=== PATIENT | male | born 1960 | race Caucasian/White ===

== ENCOUNTER 2016-11-30 15:18 | Emergency (ER) | payer BC ==
[2016-11-30] MEDS ORDERED: Sodium Chloride 0.9% 10 ML Syringe FLUSH PRN ×2 (16:04→17:01)
[2016-11-30] MEDS ORDERED: Ondansetron 4 MG/2 ML SDV IVPUSH ONE (16:04)
[2016-11-30] MEDS ORDERED: Ketorolac 30 MG/ML SDV IVPUSH ONE (16:04)
--- NOTE | 2016-11-30 16:06 | EDM.PDOC ---
ED HPI GENERAL MEDICAL PROBLEM - General Chief Complaint: Back Pain or Injury Stated Complaint: Back pain Time Seen by Provider: 11/30/16 15:50 Source of Information: Reports: Patient, RN notes reviewed History Limitations: Reports: No limitations - History of Present Illness INITIAL COMMENTS - FREE TEXT/NARRATIVE: 56 year old male presents to the ED with chief complaint of 1 week history of low back pain. The patient reportedly tripped in his yard last week and also did some heavy lifting that same day. He's had persistent low back pain since that time. He says he is unable to bend over due to the pain. The pain does not radiate down his legs. The pain radiates around his left side and into his left groin and testicle. He denies loss of bowel or bladder function. The groin pain is worsen when sitting at 90 degrees. He took excedrin yesterday with minimal relief. He also saw a massage therapist with little improvement. He has a history of an left inguinal hernia which was repaired. He also has a history of kidney stones but says this does not feel like a kidney stone. He has a long history of difficulty starting stream and dribbling of urine. He's been told he has an enlarged prostate. No history of prostate cancer. He also has a history of diverticulosis. He had a small loose BM this morning. No blood. No nausea or vomiting. [ End ] Left Lower Back Pain Score (Numeric/FACES): 8 - Related Data Allergies Allergy/AdvReac Type Severity Reaction Status Date / Time walnuts Allergy Itching Uncoded 11/30/16 15:33 Home Meds: Home Meds Albuterol [IJD: Ventolin HFA] 2 puff INH Q6H PRN 11/30/16 [History] Orphenadrine [Norflex] 100 mg PO BID #15 tab.er 11/30/16 [Rx] atorvaSTATin Calcium [Atorvastatin Calcium] 10 mg PO DAILY 11/30/16 [History] traMADol [Ultram] 50 mg PO Q6H PRN #15 tablet 11/30/16 [Rx] Past Medical History Cardiovascular History: Reports: High cholesterol Social & Family History - Tobacco Use Smoking Status *Q: Never Smoker - Recreational Drug Use Recreational Drug Use: No ED ROS GENERAL - Review of Systems Review Of Systems: See Below Constitutional: Reports: no symptoms. Denies: fever, chills, diaphoresis Respiratory: Reports: No Symptoms. Denies: Shortness of Breath Cardiovascular: Reports: No symptoms. Denies: Chest pain GI/Abdominal: Reports: Abdominal pain, Constipation (was constipated and took exlax 2-3 days ago), Diarrhea. Denies: Black stool, Bloody stool, Hematemesis, Nausea, Vomiting : Reports: other (dribbling, difficulty starting stream, hx kidney stones ) Musculoskeletal: Reports: back pain, muscle pain Skin: Reports: no symptoms. Denies: rash Neurological: Reports: No Symptoms. Denies: Numbness, Tingling, Difficulty Walking, Weakness ED EXAM, GENERAL - Physical Exam Exam: See Below Exam Limited By: No limitations General Appearance: alert, WD/WN, anxious, moderate distress Respiratory/Chest: no respiratory distress, lungs clear, normal breath sounds Cardiovascular: normal peripheral pulses, no murmur, tachycardia GI/Abdominal: distended, tender (significant tenderness to left lower quadrant and left groin on palpation ), abnormal bowel sounds: (hyperactive ). No: no mass, guarding, rigid Back Exam: normal inspection, full range of motion, other (tenderness with palpation to left lower back. muscles are tight. ). No: CVA tenderness (L), CVA tenderness (R), vertebral tenderness Extremities: normal inspection, normal range of motion, other (positive straight leg raise test on the left. negative on right. patient moves slowly with position changes. gait is steady but guarded ) Neurological: alert, oriented, normal cognition, no motor/sensory deficits Skin Exam: Warm, Dry, Intact Course - Vital Signs Last Recorded V/S: Last Vital Signs Temp 98.0 F 11/30/16 15:34 Pulse 117 H 11/30/16 15:34 Resp 18 11/30/16 15:34 BP 140/100 H 11/30/16 15:34 Pulse Ox 99 11/30/16 15:34 - Orders/Labs/Meds Orders: Active Orders 24 hr Category Date Time Status Peripheral IV Care [RC] . DIRECTED Care 11/30/16 16:05 Active Sodium Chloride 0.9% [Saline Flush] Med 11/30/16 16:04 Active 10 ml FLUSH ASDIRECTED PRN Sodium Chloride 0.9% [Saline Flush] Med 11/30/16 17:01 Active 10 ml FLUSH ONETIME PRN Peripheral IV Insertion Adult [OM.PC] Stat Oth 11/30/16 16:04 Ordered Medication Orders Sodium Chloride (Saline Flush) 10 ml FLUSH ASDIRECTED PRN PRN Reason: Keep Vein Open Last Admin: 11/30/16 16:19 Dose: 10 ml Sodium Chloride (Saline Flush) 10 ml FLUSH ONETIME PRN PRN Reason: IV FLUSH Last Admin: 11/30/16 17:35 Dose: 10 ml Labs: Laboratory Tests 11/30/16 11/30/16 11/30/16 Range/Units 15:45 16:10 16:10 WBC 10.24 H (4.23-9.07) K/mm3 RBC 4.89 (4.63-6.08) M/mm3 Hgb 14.1 (13.7-17.5) gm/L Hct 42.5 (40.1-51.0) % MCV 86.9 (79.0-92.2) fl MCH 28.8 (25.7-32.2) pg MCHC 33.2 (32.2-35.5) g/dl RDW Std Deviation 46.2 H (35.1-43.9) fL Plt Count 303 (163-337) K/mm3 MPV 10.1 (9.4-12.3) fl Neut % (Auto) 66.7 (34.0-67.9) % Lymph % (Auto) 16.9 L (21.8-53.1) % [place] % (Auto) 15.9 H (5.3-12.2) % Eos % (Auto) 0.3 L (0.8-7.0) Baso % (Auto) 0.1 (0.1-1.2) % Neut # (Auto) 6.83 H (1.78-5.38) K/mm3 Lymph # (Auto) 1.73 (1.32-3.57) K/mm3 [place] # (Auto) 1.63 H (0.30-0.82) K/mm3 Eos # (Auto) 0.03 L (0.04-0.54) K/mm3 Baso # (Auto) 0.01 (0.01-0.08) K/mm3 Manual Slide Review Abnormal smear Sodium 140 (136-145) mEq/L Potassium 3.5 (3.5-5.1) mEq/L Chloride 105 (98-107) mEq/L Carbon Dioxide 27 (21-32) mEq/L Anion Gap 11.5 (5-15) BUN 14 (7-18) mg/dL Creatinine 0.8 (0.7-1.3) mg/dL Est Cr Clr Drug Dosing 98.56 mL/min Estimated GFR (MDRD) > 60 (>60) mL/min BUN/Creatinine Ratio 17.5 (14-18) Glucose 141 H (74-106) mg/dL Calcium 9.3 (8.5-10.1) mg/dL Total Bilirubin 0.5 (0.2-1.0) mg/dL AST 15 (15-37) U/L ALT 29 (16-63) U/L Alkaline Phosphatase 118 H (46-116) U/L Total Protein 7.6 (6.4-8.2) g/dl Albumin 4.1 (3.4-5.0) g/dl Globulin 3.5 gm/dL Albumin/Globulin Ratio 1.2 (1-2) Urine Color Yellow (Yellow) Urine Appearance Clear (Clear) Urine pH 6.5 (5.0-8.0) Ur Specific [place] 1.010 (1.005-1.030) Urine Protein Negative (Negative) Urine Glucose (UA) Negative (Negative) Urine Ketones Negative (Negative) Urine Occult Blood Trace-lysed H (Negative) Urine Nitrite Negative (Negative) Urine Bilirubin Negative (Negative) Urine Urobilinogen 0.2 (0.2-1.0) Ur Leukocyte Esterase Negative (Negative) Urine RBC 0-5 (0-5) /hpf Urine WBC 0-5 (0-5) /hpf Ur Epithelial Cells Not Reportable Ur Squamous Epith Cells Not seen (0-5) /hpf Urine Bacteria Occasional (FEW) /hpf Urine Mucus Not seen (FEW) /hpf Meds: Medications Generic Name Dose Route Start Last Admin Trade Name Freq PRN Reason Stop Dose Admin Sodium Chloride 10 ml 11/30/16 16:04 11/30/16 16:19 Saline Flush FLUSH 10 ml ASDIRECTED PRN Administration Keep Vein Open Sodium Chloride 10 ml 11/30/16 17:01 11/30/16 17:35 Saline Flush FLUSH 10 ml ONETIME PRN Administration IV FLUSH Discontinued Medications Generic Name Dose Route Start Last Admin Trade Name Freq PRN Reason Stop Dose Admin Diatrizoate Meglum/Diatrizoate Sod 90 ml 11/30/16 17:01 11/30/16 17:35 Gastrografin 37% PO 11/30/16 17:02 90 ml ONETIME ONE Administration Iopamidol 125 ml 11/30/16 17:01 11/30/16 17:35 Isovue-300 (61%) IVPUSH 11/30/16 17:02 125 ml ONETIME ONE Administration Ketorolac Tromethamine 30 mg 11/30/16 16:04 11/30/16 16:16 Toradol IVPUSH 11/30/16 16:05 30 mg ONETIME ONE Administration Ondansetron HCl 4 mg 11/30/16 16:04 11/30/16 16:14 Zofran IVPUSH 11/30/16 16:05 4 mg ONETIME ONE Administration Orphenadrine Citrate 100 mg 11/30/16 18:16 11/30/16 18:20 Norflex PO 11/30/16 18:17 100 mg ONETIME ONE Administration - Re-Assessments/Exams Free Text/Narrative Re-Assessment/Exam: CBC normal. CMP reveals non-specific elevation of alk phos and glucose is 141. UA normal. CTs read by Dr. Amaro. CT of lumbar spine reveals chronic degenerative changes. No acute findings. CT of abdomen/pelvis does not reveal any acute findings. Differential included abdominal hernia and diverticulitis which have been ruled out. Diagnosis is low back strain. Will treat conservatively and refer to physical therapy. Prescriptions provided for Norflex and Tramado. Patient educated on safety precautions. 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 Departure - Departure Time of Disposition: 19:01 Disposition: Home, Self-Care 01 Condition: good Clinical Impression: Low back strain Qualifiers: Encounter type: initial encounter Qualified Code(s): S39.012A - Strain of muscle, fascia and tendon of lower back, initial encounter Prescriptions: Orphenadrine [Norflex] 100 mg PO BID #15 tab.er traMADol [Ultram] 50 mg PO Q6H PRN #15 tablet PRN Reason: Pain (Moderate 4-6) Referrals: Trenton Yuan MD [Primary Care Provider] - Forms: ED Department Discharge, Return to Work/School Form Additional Instructions: Follow-up with Dr. Camargo or one of his partners early next week for recheck Continue with animal care service worker or massage Referral was sent to our Physical Therapy department, they will call you to schedule Orphandrine (norflex) 1 tab twice a day (morning and before bed) as needed for muscle spasm Tramdol 1-2 tabs every 6 hours as needed for pain. No driving for at least 8 hours after taking Tramadol For less severe pain you can try Tylenol 1000mg every 8 hours and/or Naproxyn 1 tab every 12 hours as needed Return to ER if you lose function of your bowel or bladder or with worsening pain Gentle stretching is ok. Stay active but avoid heavy lifting until symptoms significantly improve. - My Orders Last 24 Hours: My Active Orders 11/30/16 16:04 Sodium Chloride 0.9% [Saline Flush] 10 ml FLUSH ASDIRECTED PRN Peripheral IV Insertion Adult [OM.PC] Stat 11/30/16 16:05 Peripheral IV Care [RC] . DIRECTED 11/30/16 17:01 Sodium Chloride 0.9% [Saline Flush] 10 ml FLUSH ONETIME PRN - Assessment/Plan Last 24 Hours: My Active Orders 11/30/16 16:04 Sodium Chloride 0.9% [Saline Flush] 10 ml FLUSH ASDIRECTED PRN Peripheral IV Insertion Adult [OM.PC] Stat 11/30/16 16:05 Peripheral IV Care [RC] . DIRECTED 11/30/16 17:01 Sodium Chloride 0.9% [Saline Flush] 10 ml FLUSH ONETIME PRN
[2016-11-30] MEDS ORDERED: Diatrizoate Meglumine/Diatrizoate Sodium 37% 120 ML Bottle PO ONE (17:01)
[2016-11-30] MEDS ORDERED: Iopamidol 612 MG/ML 150 ML Bottle IVPUSH ONE (17:01)
[2016-11-30] MEDS ORDERED: Orphenadrine 100 MG Tab.ER PO ONE (18:16)
--- NOTE | 2016-11-30 18:39 | CT ---
CT abdomen and pelvis Technique: Multiple axial sections were obtained from above the dome of the diaphragm inferiorly through the pubic symphysis. Intravenous and oral contrast was utilized. Delayed images were also obtained through the bladder. Comparison: Previous noncontrast CT exam of 06/15/16 is available. Findings: Large calcified lesion which is felt compatible with large granuloma is seen adjacent to the right heart measuring approximately 1.9 cm. Visualized lung bases are otherwise clear. Calcified lymph nodes are partially visualized within the subcarinal region. Liver shows no focal parenchymal abnormality. Spleen appears within normal limits. Adrenal glands show no nodule. Pancreas is within normal limits. 2 adjacent nonobstructing calculi are seen within the lower right kidney. Calculi measure around 4 mm in size. Calculi are similar to prior exam. Kidneys otherwise are unremarkable. No ureteral dilatation is seen. Delayed images shows contrast within the distal ureters and bladder. Aorta shows no aneurysmal dilatation. No retroperitoneal adenopathy or mesenteric abnormality is seen. No pelvic mass or adenopathy is seen. Prostate gland is mildly enlarged. No free fluid or inflammatory change is seen within the abdomen or pelvis. Impression: 1. Incidental findings as noted above. Nothing acute is appreciated on CT study of the abdomen and pelvis. Diagnostic code #2
--- NOTE | 2016-11-30 18:39 | CT ---
CT lumbar spine Technique: Multiple axial sections were obtained from above the T9-10 disc inferiorly through the L5-S1 disc. Reconstructed sagittal and coronal images were reviewed. T9-10: Mild disc space narrowing is noted. Posterior disc is preserved. No central canal stenosis or neural foraminal stenosis is seen. T10-11: Mild disc space narrowing is noted. Posterior disc is preserved. No central canal stenosis is seen. Neural foramina are patent. T11-12: Mild disc space narrowing is noted. Posterior disc is preserved. No central canal stenosis or neural foraminal stenosis is seen. T12-L1: Disc height is preserved. Posterior disc is maintained. No central canal stenosis or neural foraminal stenosis is seen. L1-2: Disc height is maintained. Posterior disc is preserved. No central canal stenosis or neural foraminal stenosis is seen. L2-3: Disc height is preserved. Posterior disc is maintained. No central canal stenosis or neural foraminal stenosis is seen. L3-4: Disc height is preserved. Slight circumferential disc bulge is seen. Posterior disc maintains a concave margin. Mild degenerative apophyseal change is seen. No central canal stenosis or neural foraminal stenosis is seen. L4-5: Disc height is maintained. Slight circumferential disc bulge is seen. Posterior disc has a planar margin. Moderate degenerative apophyseal change is noted. No central canal stenosis is seen. Neural foramina appear to be patent. L5-S1: Posterior disc is preserved. No central canal stenosis or neural foraminal stenosis is seen. No fracture is seen. No abnormal subluxation is identified. Mild scattered endplate osteophytes are seen. Impression: 1. Mild degenerative change as noted above. No fracture is seen. No discrete disc herniation, central canal stenosis or neural foraminal stenosis is seen. Diagnostic code #2
[2016-11-30 19:24] VITALS: BP 139/104
== END 2016-11-30 19:20 | disposition home or self-care (01) ==
LOC: JD.ED 15:18
DX: S39.012A Strain of muscle, fascia and tendon of lower back, initial encounter (principal); X58.XXXA Exposure to other specified factors, initial encounter; E78.00 Pure hypercholesterolemia, unspecified; Z79.899 Other long term (current) drug therapy; Z91.018 Allergy to other foods
CPT/HCPCS: 36415; 72131; 74177; 80053; 81001; 85025; 96374; 96375; 99284; A9270; J1885; J2405; J7050; Q9963; Q9967

== ENCOUNTER 2019-10-18 08:46 | Emergency (ER) | payer BC ==
[2019-10-18 09:02] VITALS: BP 162/103; PULSE 70
--- NOTE | 2019-10-18 09:40 | EDM.PDOC ---
ED HPI GENERAL MEDICAL PROBLEM - General Chief Complaint: Genitourinary Problem Stated Complaint: BLOOD IN URINE Time Seen by Provider: 10/18/19 08:56 Source of Information: Reports: Patient History Limitations: Reports: No Limitations - History of Present Illness INITIAL COMMENTS - FREE TEXT/NARRATIVE: The patient presents with hematuria. This started last night. He had some clots last night. This has never happened before. He does have a history of kidney stones but he has never had gross blood in his urine before. He does have some dysuria at times. He has some mild discomfort to the left flank area but nothing like his other kidney stones. He has no fever, chills, cough, chest pain, shortness of breath, nausea or vomiting. Onset: Gradual Duration: Day(s): (last night) Location: Reports: Abdomen Quality: Reports: Other (discomfort) Severity: Mild Improves with: Reports: None Worsens with: Reports: None Associated Symptoms: Reports: No Other Symptoms Left Flank Pain Score (Numeric/FACES): 1 - Related Data Allergies Allergy/AdvReac Type Severity Reaction Status Date / Time walnuts Allergy Itching Uncoded 10/18/19 09:02 Home Meds: Home Meds Albuterol [IJD: Ventolin HFA] 2 puff INH Q6H PRN 11/30/16 [History] atorvaSTATin Calcium [Atorvastatin Calcium] 10 mg PO DAILY 11/30/16 [History] Past Medical History Cardiovascular History: Reports: High Cholesterol Gastrointestinal History: Reports: Diverticulosis Genitourinary History: Reports: Renal Calculus Social & Family History - Tobacco Use Smoking Status *Q: Never Smoker - Caffeine Use Caffeine Use: Reports: Soda - Recreational Drug Use Recreational Drug Use: No ED ROS GENERAL - Review of Systems Review Of Systems: See Below Constitutional: Reports: No Symptoms HEENT: Reports: No Symptoms Respiratory: Reports: No Symptoms Cardiovascular: Reports: No Symptoms Endocrine: Reports: No Symptoms GI/Abdominal: Reports: Abdominal Pain. Denies: Diarrhea, Nausea, Vomiting : Reports: Dysuria, Hematuria Musculoskeletal: Reports: No Symptoms Skin: Reports: No Symptoms ED EXAM, RENAL/ - Physical Exam Exam: See Below Exam Limited By: No Limitations General Appearance: Alert, No Apparent Distress Ears: Normal External Exam Nose: Normal Inspection Head: Atraumatic, Normocephalic Neck: Normal Inspection Respiratory/Chest: No Respiratory Distress, Lungs Clear, Normal Breath Sounds Cardiovascular: Regular Rate, Rhythm, No Edema, No Murmur GI/Abdominal: Soft, Non-Tender, No Organomegaly, No Mass Extremities: Normal Inspection Course - Vital Signs Last Recorded V/S: Last Vital Signs Temp 98.7 F 10/18/19 08:54 Pulse 70 10/18/19 08:54 Resp 18 10/18/19 08:54 BP 162/103 H 10/18/19 08:54 Pulse Ox 100 10/18/19 08:54 - Orders/Labs/Meds Labs: Laboratory Tests 10/18/19 10/18/19 10/18/19 Range/Units 08:56 09:30 09:30 WBC 5.41 (4.23-9.07) K/mm3 RBC 4.62 L (4.63-6.08) M/mm3 Hgb 13.4 L (13.7-17.5) gm/dl Hct 40.3 (40.1-51.0) % MCV 87.2 (79.0-92.2) fl MCH 29.0 (25.7-32.2) pg MCHC 33.3 (32.2-35.5) g/dl RDW Std Deviation 46.3 H (35.1-43.9) fL Plt Count 309 (163-337) K/mm3 MPV 9.7 (9.4-12.3) fl Neut % (Auto) 66.6 (34.0-67.9) % Lymph % (Auto) 22.4 (21.8-53.1) % [place] % (Auto) 10.2 (5.3-12.2) % Eos % (Auto) 0.4 L (0.8-7.0) Baso % (Auto) 0.4 (0.1-1.2) % Neut # (Auto) 3.61 (1.78-5.38) K/mm3 Lymph # (Auto) 1.21 L (1.32-3.57) K/mm3 [place] # (Auto) 0.55 (0.30-0.82) K/mm3 Eos # (Auto) 0.02 L (0.04-0.54) K/mm3 Baso # (Auto) 0.02 (0.01-0.08) K/mm3 Sodium 141 (136-145) mEq/L Potassium 3.4 L (3.5-5.1) mEq/L Chloride 107 (98-107) mEq/L Carbon Dioxide 25 (21-32) mEq/L Anion Gap 12.4 (5-15) BUN 15 (7-18) mg/dL Creatinine 0.7 (0.7-1.3) mg/dL Est Cr Clr Drug Dosing 104.92 mL/min Estimated GFR (MDRD) > 60 (>60) mL/min BUN/Creatinine Ratio 21.4 H (14-18) Glucose 103 (74-106) mg/dL Calcium 9.0 (8.5-10.1) mg/dL Total Bilirubin 0.5 (0.2-1.0) mg/dL AST 19 (15-37) U/L ALT 33 (16-63) U/L Alkaline Phosphatase 96 (46-116) U/L Total Protein 7.3 (6.4-8.2) g/dl Albumin 3.9 (3.4-5.0) g/dl Globulin 3.4 gm/dL Albumin/Globulin Ratio 1.2 (1-2) Urine Color Yellow (Yellow) Urine Appearance Clear (Clear) Urine pH 7.0 (5.0-8.0) Ur Specific [place] 1.015 (1.005-1.030) Urine Protein Negative (Negative) Urine Glucose (UA) Negative (Negative) Urine Ketones Negative (Negative) Urine Occult Blood 3+ H (Negative) Urine Nitrite Negative (Negative) Urine Bilirubin Negative (Negative) Urine Urobilinogen 0.2 (0.2-1.0) Ur Leukocyte Esterase Trace H (Negative) Urine RBC 10-20 H (0-5) /hpf Urine WBC 0-5 (0-5) /hpf Ur Squamous Epith Cells 0-5 (0-5) /hpf Urine Bacteria Few (FEW) /hpf Urine Mucus Few (FEW) /hpf - Re-Assessments/Exams Free Text/Narrative Re-Assessment/Exam: 10/18/19 10:22 His UA shows some RBCs and leukocyte esterase. There were no WBCs or bacteria. It does not look like a UTI. His CBC and CMP look good. He sees Dr Nieves in [place] the urologist. I will need to follow up within a week or two. Departure - Departure Time of Disposition: 10:25 Disposition: Home, Self-Care 01 Condition: Good Clinical Impression: Hematuria Qualifiers: Hematuria type: gross Qualified Code(s): R31.0 - Gross hematuria - Discharge Information *PRESCRIPTION DRUG MONITORING PROGRAM REVIEWED*: No *COPY OF PRESCRIPTION DRUG MONITORING REPORT IN PATIENT RANDY: No Referrals: PCP,None [Ordering Only Provider] - Eliud Nieves MD [Ordering Only Provider] - 1 Week Forms: ED Department Discharge Additional Instructions: Drink plenty of water. Follow up with Dr Nieves in a week or two. Please return if you are worse. Sepsis Event Note - Evaluation Sepsis Screening Result: No Definite Risk - Focused Exam Vital Signs: Vital Signs Temp Pulse Resp BP Pulse Ox 10/18/19 08:54 98.7 F 70 18 162/103 H 100 Date Exam was Performed: 10/18/19 Time Exam was Performed: 10:22
== END 2019-10-18 10:43 | disposition home or self-care (01) ==
LOC: JD.ED 08:46
DX: R31.0 Gross hematuria (principal); E78.00 Pure hypercholesterolemia, unspecified; Z91.018 Allergy to other foods; Z79.899 Other long term (current) drug therapy
CPT/HCPCS: 36415; 80053; 81001; 85025; 99283